=== PATIENT | male | born 1985 | race American Indian/Alaskan Native ===

== ENCOUNTER 2021-08-30 02:15 | Emergency (ER) | payer SELFPAY ==
[2021-08-30] MEDS ORDERED: hydrALAZINE 100 MG TAB PO ONE (02:46)
[2021-08-30] MEDS ORDERED: hydrALAZINE 20 MG/1 ML INJ ONE (02:56)
[2021-08-30] MEDS ORDERED: hydrALAZINE 20 MG/1 ML INJ IV ONE (02:59)
[2021-08-30] MEDS ORDERED: OXYMETAZOLINE 0.05% NASAL SPRAY NS ONE (03:00)
--- NOTE | 2021-08-30 03:20 | Emergency Department Report ---
ED General Adult HPI - General Chief complaint: Nosebleed Stated complaint: NOSEBLEED Time Seen by Provider: 08/30/21 03:14 Source: patient Mode of arrival: Ambulatory Limitations: No Limitations - History of Present Illness Initial comments: Patient is a 35-year-old male who presents with right nares bleed patient states that he was working and he blew his nose and he started bleeding. He has a past medical history of high blood pressure. Patient denies having any pain. Patient's nosebleed is severe. Patient denies being on any blood thinners. - Related Data Previous Rx's Medication Instructions Recorded Last Taken Type HYDROcodone/APAP 5-325 [[place] 1 each PO Q6HR PRN #20 tablet 05/06/14 Unknown Rx 5/325] Ibuprofen [Motrin] 800 mg PO Q8H #30 tablet 05/06/14 Unknown Rx Allergies Allergy/AdvReac Type Severity Reaction Status Date / Time No Known Allergies Allergy Verified 08/30/21 02:43 ED Review of Systems ROS: Stated complaint: NOSEBLEED Other details as noted in HPI Constitutional: denies: chills, fever Eyes: denies: eye pain, eye discharge, vision change ENT: epistaxis. denies: ear pain, throat pain Respiratory: denies: cough, shortness of breath, wheezing Cardiovascular: denies: chest pain, palpitations Endocrine: no symptoms reported Gastrointestinal: denies: abdominal pain, nausea, diarrhea Genitourinary: denies: urgency, dysuria Musculoskeletal: denies: back pain, joint swelling, arthralgia Skin: denies: rash, lesions Neurological: denies: headache, weakness, paresthesias Psychiatric: denies: anxiety, depression Hematological/Lymphatic: denies: easy bleeding, easy bruising ED Past Medical Hx - Past Medical History Hx Hypertension: Yes - Surgical History Hx Coronary Stent: No Hx Open Heart Surgery: No Hx Pacemaker: No Hx Internal Defibrillator: No Hx Cholecystectomy: No Hx Appendectomy: No Hx Breast Surgery: No - Social History Smoking Status: Never Smoker Substance Use Type: None - Medications Home Medications: Home Medications Medication Instructions Recorded Confirmed Last Taken Type HYDROcodone/APAP 5-325 [[place] 1 each PO Q6HR PRN #20 tablet 05/06/14 Unknown Rx 5/325] Ibuprofen [Motrin] 800 mg PO Q8H #30 tablet 05/06/14 Unknown Rx ED Physical Exam - General Limitations: No Limitations General appearance: alert, in no apparent distress - Head Head exam: Present: atraumatic, normocephalic - Eye Eye exam: Present: normal appearance - ENT ENT exam: Present: other (right nares bleed) - Neck Neck exam: Present: normal inspection - Respiratory Respiratory exam: Present: normal lung sounds bilaterally. Absent: respiratory distress - Cardiovascular Cardiovascular Exam: Present: regular rate, normal rhythm. Absent: systolic murmur, diastolic murmur, rubs, gallop - GI/Abdominal GI/Abdominal exam: Present: soft, normal bowel sounds - Rectal Rectal exam: Present: deferred - Extremities Exam Extremities exam: Present: normal inspection - Back Exam Back exam: Present: normal inspection - Neurological Exam Neurological exam: Present: alert, oriented X3 - Psychiatric Psychiatric exam: Present: normal affect, normal mood - Skin Skin exam: Present: warm, dry, intact, normal color. Absent: rash ED Course Vital Signs 08/30/21 08/30/21 08/30/21 02:43 02:44 03:06 Temperature 98.8 F Pulse Rate 112 H 105 H Blood Pressure 232/152 230/141 O2 Sat by Pulse 99 99 Oximetry - Procedure Description Procedures done: Anterior epistaxis management with packing ED Medical Decision Making - Medical Decision Making Chief medical diagnosis anterior epistaxis Differential medical diagnosis hypertensive urgency Hypertensive emergency I will give patient Afrin I will do nasal packing and I will give patient antihypertensive medication and I will discharge charge patient from the emergency department Critical care attestation.: If time is entered above; I have spent that time in minutes in the direct care of this critically ill patient, excluding procedure time. ED Disposition Clinical Impression: Anterior epistaxis Disposition: 01 HOME / SELF CARE / HOMELESS Is pt being admited?: No Does the pt Need Aspirin: No Condition: Stable Instructions: Nosebleed, [id number], Nosebleed, Adult
[2021-08-30] MEDS ORDERED: cloNIDine 0.2 MG TAB PO ONE (03:22)
[2021-08-30 05:45] VITALS: BP 200/100
== END 2021-08-30 05:43 | disposition home or self-care (01) ==
LOC: ED 02:15
DX: R04.0 Epistaxis (principal); I10 Essential (primary) hypertension; Z79.899 Other long term (current) drug therapy
CPT/HCPCS: 30901; 96374; 99282; J0360

== ENCOUNTER 2022-04-30 05:57 | Emergency (ER) | payer SELFPAY ==
[2022-04-30] MEDS ORDERED: cloNIDine 0.1 MG TAB PO ONE (10:09)
[2022-04-30] MEDS ORDERED: LISINOPRIL 20 MG TAB PO ONE (10:09)
--- NOTE | 2022-04-30 10:11 | Event Note ---
ED Screening Note ED Screening Note: 36-year-old male history of hypertension presents with shortness of breath cough mucus production. Blood pressure elevated in triage, patient reports he has been off blood pressure medicines for a while. Symptoms associated with intermittent chest pain, no swelling, no headache, no dizziness, no vision ch anges. General: Nontoxic appearing no acute distress Cardiac: Regular rate, normal heart sounds Respiratory: Normal lung sounds bilaterally no use of segment block layer muscles GI/-normal sounds, nontender no guarding Musculoskeletal-normal inspection full range of motion Neuro-alert oriented x4. In the setting of a significantly high volume and record number of patients presenting to the emergency department and the fact that we have a limited space to see patients we have implemented the provider in triage protocol this allows an expedited initial exam of patients that might otherwise have left without being seen or who would wait longer than usual to be seen by provider. I interviewed the patient and performed a limited physical exam. This patient is a pulled from the waiting room to triage room for an initial assessment of adrenal studies and then returned to the waiting room pending results of the studies. The ultimate final evaluation and disposition may be performed by another provider depending on room and provider availability.
--- NOTE | 2022-04-30 10:24 | XRay Report ---
CHEST 2 VIEWS INDICATION / CLINICAL INFORMATION: sob. COMPARISON: None available. FINDINGS: SUPPORT DEVICES: None. HEART / MEDIASTINUM: No significant abnormality. LUNGS / PLEURA: No significant pulmonary or pleural abnormality. No pneumothorax. ADDITIONAL FINDINGS: No significant additional findings. IMPRESSION: 1. No acute findings. Signer Name: Arnulfo Ramsay DO Signed: 04/30/2022 10:19 AM Workstation Name: [id number]
[2022-04-30 10:39] LABS: Hematocrit 37.8 % (35.5-45.6); Hemoglobin 12.6 gm/dl (11.8-15.2); Mean Corpuscular HGB Conc 34 % (32-34); Mean Corpuscular Volume 86 fl (84-94); Platelet Count 277 K/mm3 (140-440); Red Blood Count 4.37 M/mm3 (3.65-5.03); Red Cell Distribution Width 13.7 % (13.2-15.2)
[2022-04-30 11:00] LABS: Albumin 4.4 g/dL (3.9-5); Calcium 9.5 mg/dL (8.4-10.2)
[2022-04-30] MEDS ORDERED: SODIUM CHLORIDE 0.9% 1000 ML 1,000 ML IV ONE (14:27)
--- NOTE | 2022-04-30 14:39 | Emergency Department Report ---
ED General Adult HPI - General Chief complaint: Upper Respiratory Infection Stated complaint: COUGH,SOB Time Seen by Provider: 04/30/22 13:28 Source: patient Mode of arrival: Ambulatory Limitations: No Limitations - History of Present Illness Initial comments: 36-year-old male history of hypertension presents to the emergency department with cough and shortness of breath. Patient reports has been experiencing coughing with shortness of breath x1 month with intermittent chest pain. Describes mucus production with his cough, no hemoptysis. No swelling of his extremities, no activity intolerance. He denies history of asthma or COPD, no wheezing. No headache dizziness nausea vomiting abdominal pain. Patient has history of hypertension, noncompliant with medications in over a month, states he has been doing some home remedy which was helping his blood pressure initially. -: Gradual Associated Symptoms: chest pain, cough, shortness of breath. denies: confusion, diaphoresis, fever/chills, headaches, loss of appetite, malaise, nausea/vomiting, rash, seizure - Related Data Previous Rx's Medication Instructions Recorded Last Taken Type HYDROcodone/APAP 5-325 [[place] 1 each PO Q6HR PRN #20 tablet 05/06/14 Unknown Rx 5/325] Ibuprofen [Motrin] 800 mg PO Q8H #30 tablet 05/06/14 Unknown Rx cloNIDine [Catapres] 0.1 mg PO BID #60 tablet 08/30/21 Unknown Rx Lisinopril/Hydrochlorothiazide 1 each PO DAILY #30 tablet 04/30/22 Unknown Rx [Zestoretic 20-12.5 mg] carvediloL [Coreg] 25 mg PO BID #60 tablet 04/30/22 Unknown Rx Allergies Allergy/AdvReac Type Severity Reaction Status Date / Time No Known Allergies Allergy Verified 08/30/21 02:43 ED Review of Systems ROS: Stated complaint: COUGH,SOB Other details as noted in HPI ENT: denies: ear pain, throat pain Respiratory: cough Cardiovascular: denies: chest pain, palpitations, syncope Gastrointestinal: denies: abdominal pain, nausea, vomiting, constipation Genitourinary: denies: urgency, dysuria Neurological: denies: headache, weakness, numbness, paresthesias ED Past Medical Hx - Past Medical History Hx Hypertension: Yes - Surgical History Hx Coronary Stent: No Hx Open Heart Surgery: No Hx Pacemaker: No Hx Internal Defibrillator: No Hx Cholecystectomy: No Hx Appendectomy: No Hx Breast Surgery: No - Social History Smoking Status: Never Smoker Substance Use Type: None - Medications Home Medications: Home Medications Medication Instructions Recorded Confirmed Last Taken Type HYDROcodone/APAP 5-325 [[place] 1 each PO Q6HR PRN #20 tablet 05/06/14 Unknown Rx 5/325] Ibuprofen [Motrin] 800 mg PO Q8H #30 tablet 05/06/14 Unknown Rx cloNIDine [Catapres] 0.1 mg PO BID #60 tablet 08/30/21 Unknown Rx Lisinopril/Hydrochlorothiazide 1 each PO DAILY #30 tablet 04/30/22 Unknown Rx [Zestoretic 20-12.5 mg] carvediloL [Coreg] 25 mg PO BID #60 tablet 04/30/22 Unknown Rx ED Physical Exam - General Limitations: No Limitations General appearance: alert, in no apparent distress - Head Head exam: Present: atraumatic - Eye Eye exam: Present: normal appearance, PERRL - ENT ENT exam: Present: normal exam, normal orophraynx - Neck Neck exam: Present: normal inspection - Respiratory Respiratory exam: Present: normal lung sounds bilaterally. Absent: respiratory distress, wheezes - Cardiovascular Cardiovascular Exam: Present: tachycardia - GI/Abdominal GI/Abdominal exam: Present: soft. Absent: distended, tenderness - Extremities Exam Extremities exam: Present: normal inspection, full ROM. Absent: tenderness, calf tenderness - Back Exam Back exam: Present: normal inspection, full ROM - Neurological Exam Neurological exam: Present: alert, oriented X3 - Psychiatric Psychiatric exam: Present: normal affect, normal mood - Skin Skin exam: Present: warm, dry, intact, normal color ED Course Vital Signs 04/30/22 04/30/22 04/30/22 06:01 06:03 16:50 Temperature 98.0 F Pulse Rate 119 H Respiratory 16 Rate Blood Pressure 224/168 Blood Pressure 216/160 211/136 [Right] O2 Sat by Pulse 99 Oximetry - Reevaluation(s) Reevaluation #1: 04/30/22 14:[address] Garcia regarding admission recommended that I speak with my attending first before admitting patient [id number] I Have spoken with my attending Dr. jung who agrees with plan patient is to be admitted for hypertensive emergency. I paged again awaiting callback I also paged the [facility] barrel on-call. 04/30/22 15:00 Paged hospitalist, no response [id number] Page to hospitalist, spoke with Dr. Garcia, patient with a BUN/creatinine 30 and 3.0, with a systolic blood pressure in the 200s and diastolic in the 100s" patient does not meet criteria for admission, get a urine drug screen from him, treat his blood pressure, give IV fluids and discharge from the ER have him follow-up with a [facility]". ED Medical Decision Making - Lab Data Result diagrams: 04/30/22 10:11 04/30/22 10:11 - EKG Data -: EKG Interpreted by Me Rate: tachycardia - EKG Data When compared to previous EKG there are: previous EKG unavailable EKG taken at 0 6:14 AM 04/30/22 20:12 Sinus tach at 118, Probable left atrial enlargement, with LVH, anterior ST elevation probably all due to LVH WA interval 151,, QRS 90, QT 337/QTc 473. Abnormal EKG for - Radiology Data Radiology results: report reviewed, image reviewed No acute findings - Medical Decision Making 36-year-old male presenting with shortness of breath, hypertension. Symptoms are without headache dizziness vision changes, labs result concerning for hypertensive emergency with endorgan damage. Attempted to admit patient to the hospitalist services for further evaluation, as agreed upon with my attending Dr. jung. Admission orders placed in by Dr. Jung, however admission declined by Dr. Garcia, who recommended to treat patient's blood pressure in the ED IV fluids, not repeat the labs but have patient follow-up in a few weeks for lab repeat. Dr. Garcia did come down to the emergency department to explain the plan. I discussed all of this with patient and he agrees. Patient has been stable, vital signs improving, and he is voiding without difficulty. I have refilled his blood pressure medications, I have also referred him outpatient follow-up for further evaluation, and have also strictly encouraged him on blood pressure management, acute kidney injury, with understanding. Patient remained stable nontoxic-appearing, afebrile, ambulating steadily without assistance. Gone over ED findings with patient as well as plan for follow-up. Also discussed return precautions with patient, all questions and concerns addressed. Patient is stable to be discharged follow-up outpatient. Audio voice dictation device used, hence the chart might contain some dictation errors, mispronunciations, wrong spelling and wrong verbiage. Critical care attestation.: If time is entered above; I have spent that time in minutes in the direct care of this critically ill patient, excluding procedure time. ED Disposition Clinical Impression: Hypertensive emergency, Acute kidney injury, Noncompliance with medication regimen Disposition: HOME / SELF CARE / HOMELESS Is pt being admited?: No Does the pt Need Aspirin: No Condition: Stable Instructions: Hypertension (ED), Acute Kidney Injury, Adult, Managing Your Hypertension Prescriptions: carvediloL [Coreg] 25 mg PO BID #60 tablet Lisinopril/Hydrochlorothiazide [Zestoretic 20-12.5 mg] 1 each PO DAILY #30 tablet Referrals: KATHLEEN LAGUNA DO [Staff Physician] - 3-5 Days TYSON GARCIA MD [Staff Physician] - 3-5 Days Forms: Work/School Release Form(ED)
[2022-04-30 16:30] LABS: Uric Acid 7.8 mg/dL (3.5-7.6)
[2022-04-30] MEDS ORDERED: carvediloL 6.25 MG TAB PO ONE (17:03)
[2022-04-30] MEDS ORDERED: hydrALAZINE 20 MG/1 ML INJ IV ONE (17:03)
[2022-04-30 21:07] VITALS: BP 171/111
--- NOTE | 2022-05-01 13:11 | Electrocardiograph Report ---
[facility] Test Date: 2022-04-30 Test Time: 06:14:13 Pat Name: DAISY COLLIER Department: Room: Gender: M Statement Request Clerk: BELKYS : 1985 Requested By: SHERON LAMA Order Number: [id number] Reading MD: Shelly Jorge Measurements Intervals [place] Rate: 118 P: -13 CA: 151 QRS: -33 QRSD: 90 T: 100 QT: 337 QTc: 473 Interpretive Statements Sinus tachycardia Probable left atrial enlargement Left axis deviation LVH WITH SECONDARY REPOLARIZATION ABNORMALITY No previous ECG available for comparison Electronically Signed On 05-01-2022 13:11:11 EDT by Shelyl Jorge
--- NOTE | 2022-05-02 08:35 | Event Note ---
Date: 05/02/22 Case presented to me on April 30, 2022, I recommended nephrology consultation, and admission for blood pressure control, for presumed renal insufficiency, secondary to uncontrolled hypertension. I called up patient's phone #[phone], left voicemail for emergent call back. Also called up patient's , [phone], spoke to Ms. Cornejo, requested that patient's have patient call us up in the emergency room as soon as possible, so we could discuss plan of care for return to the hospital, for management for high blood pressure and renal insufficiency Shortly thereafter, the patient called back, and articulated understanding to my instructions to be present for repeat evaluation.
== END 2022-04-30 21:07 | disposition home or self-care (01) ==
LOC: ED 05:57
DX: I16.1 Hypertensive emergency (principal); I10 Essential (primary) hypertension; N17.9 Acute kidney failure, unspecified; Z91.14 Patient's other noncompliance with medication regimen
CPT/HCPCS: 36415; 71046; 80053; 82550; 83735; 84443; 84484; 84550; 85027; 93005; 96374; 99284; J0360; J7030

== ENCOUNTER 2022-05-02 09:51 | Observation (INO) | payer SELFPAY ==
--- NOTE | 2022-05-02 10:18 | Emergency Department Report ---
ED General Adult HPI - General Chief complaint: Medical Clearance Stated complaint: BLOOD PRESSURE/KIDNEY Time Seen by Provider: 05/02/22 10:16 Source: patient, RN notes reviewed, old records reviewed Mode of arrival: Stretcher Limitations: No Limitations - History of Present Illness Initial comments: The patient was evaluated in the emergency department for symptoms described in the history of present illness. He/she was evaluated in the context of the global COVID-19 pandemic, which necessitated consideration that the patient might be at risk for infection with the virus that causes COVID-19. Institutional protocols and algorithms that pertain to the evaluation of patients at risk for COVID-19 are in a state of rapid change based on informat ion released by regulatory bodies including the CDC and federal and state organizations. These policies and algorithms were followed during the patient's care in the emergency department. Please note that these policies, procedures and recommendations changed on a rapid basis. This is a 36-year-old gentleman, with a history of hypertension and tobacco abuse. He is COVID-19 vaccinated. He is also [id number]. He was seen in this department a few days ago for elevated blood pressure, and cough. Laboratory studies were obtained, and demonstrated renal insufficiency, presumably acute. Patient states that a few months ago, he had laboratory studies performed, and he believes that the laboratory studies were unremarkable. The patient came back because I called him to come back for repeat evaluation. He reports that he is been having intermittent cough, predominantly at night for the past month. He denies physical pain. He occasionally smokes cigarettes and is motivated to discontinue tobacco consumption. He denies IV drug use, and crack cocaine use. He currently denies headache, neck pain, chest pain, abdominal pain, shortness of breath, nausea, vomiting, diarrhea, urinary symptoms and testicular pain. He is very anxious about his creatinine, and is concerned that he may require dialysis. He reports that a few months ago, he was prescribed amlodipine and HCTZ, and he is intermittently compliant. Besides feeling minimally anxious about his creatinine level, he otherwise denies additional injuries and complaints Associated Symptoms: denies other symptoms, cough - Related Data Previous Rx's Medication Instructions Recorded Last Taken Type HYDROcodone/APAP 5-325 [[place] 1 each PO Q6HR PRN #20 tablet 05/06/14 Unknown Rx 5/325] Ibuprofen [Motrin] 800 mg PO Q8H #30 tablet 05/06/14 Unknown Rx cloNIDine [Catapres] 0.1 mg PO BID #60 tablet 08/30/21 Unknown Rx Lisinopril/Hydrochlorothiazide 1 each PO DAILY #30 tablet 04/30/22 Unknown Rx [Zestoretic 20-12.5 mg] carvediloL [Coreg] 25 mg PO BID #60 tablet 04/30/22 Unknown Rx Allergies Allergy/AdvReac Type Severity Reaction Status Date / Time No Known Allergies Allergy Verified 05/02/22 10:21 ED Review of Systems ROS: Stated complaint: BLOOD PRESSURE/KIDNEY Other details as noted in HPI Comment: All other systems reviewed and negative Respiratory: cough Psychiatric: anxiety ED Past Medical Hx - Past Medical History Hx Hypertension: Yes - Surgical History Hx Coronary Stent: No Hx Open Heart Surgery: No Hx Pacemaker: No Hx Internal Defibrillator: No Hx Cholecystectomy: No Hx Appendectomy: No Hx Breast Surgery: No - Social History Smoking Status: Never Smoker Substance Use Type: None - Medications Home Medications: Home Medications Medication Instructions Recorded Confirmed Last Taken Type HYDROcodone/APAP 5-325 [[place] 1 each PO Q6HR PRN #20 tablet 05/06/14 Unknown Rx 5/325] Ibuprofen [Motrin] 800 mg PO Q8H #30 tablet 05/06/14 Unknown Rx cloNIDine [Catapres] 0.1 mg PO BID #60 tablet 08/30/21 Unknown Rx Lisinopril/Hydrochlorothiazide 1 each PO DAILY #30 tablet 04/30/22 Unknown Rx [Zestoretic 20-12.5 mg] carvediloL [Coreg] 25 mg PO BID #60 tablet 04/30/22 Unknown Rx ED Physical Exam - General Limitations: No Limitations General appearance: alert, anxious - Head Head exam: Present: atraumatic, normocephalic - Eye Eye exam: Present: normal appearance, EOMI, other (Visual acuity intact to finger counting, color perception, reading at a close distance). Absent: nystagmus - ENT ENT exam: Present: normal exam, normal orophraynx, mucous membranes moist, normal external ear exam - Neck Neck exam: Present: normal inspection, full ROM. Absent: tenderness, meningismus - Respiratory Respiratory exam: Present: normal lung sounds bilaterally. Absent: respiratory distress, wheezes, rales, rhonchi, stridor, decreased breath sounds - Cardiovascular Cardiovascular Exam: Present: regular rate, normal rhythm, normal heart sounds. Absent: bradycardia, tachycardia, irregular rhythm, systolic murmur, diastolic murmur, rubs, gallop - GI/Abdominal GI/Abdominal exam: Present: soft. Absent: distended, tenderness, guarding, rebound, rigid, pulsatile mass - Rectal Rectal exam: Present: deferred - Extremities Exam Extremities exam: Present: normal inspection, full ROM, other (2+ pulses noted in the bilateral upper and lower extremities. There is no palpable cord. negative Homans sign. Muscular compartments are soft. The pelvis is stable.). Absent: pedal edema, calf tenderness - Back Exam Back exam: Present: normal inspection, full ROM. Absent: CVA tenderness (R), CVA tenderness (L), paraspinal tenderness, vertebral tenderness - Neurological Exam Neurological exam: Present: alert, oriented X3, normal gait, other (No facial droop. Tongue midline. Extraocular movements intact bilaterally. Facial sensation intact to light touch in V1, V2, V3 distribution bilaterally. 5 and a 5 strength in 4 extremities. Sensation intact to light touch in 4 extremities.). Absent: motor sensory deficit - Psychiatric Psychiatric exam: Present: anxious - Skin Skin exam: Present: warm, dry, intact, normal color. Absent: rash ED Course Vital Signs 05/02/22 10:18 Temperature 98.5 F Pulse Rate 75 Respiratory 18 Rate Blood Pressure 175/110 [Left] O2 Sat by Pulse 99 Oximetry ED Medical Decision Making - Lab Data Result diagrams: 05/02/22 10:46 Vital Signs 05/02/22 10:18 Temperature 98.5 F Pulse Rate 75 Respiratory 18 Rate Blood Pressure 175/110 [Left] O2 Sat by Pulse 99 Oximetry Lab Results 05/02/22 Range/Units 10:46 Sodium 136 L (137-145) mmol/L Potassium 4.2 (3.6-5.0) mmol/L Chloride 101.5 (98-107) mmol/L Carbon Dioxide 25 (22-30) mmol/L Anion Gap 14 mmol/L BUN 28 H (9-20) mg/dL Creatinine 3.2 H (0.8-1.3) mg/dL Estimated GFR 27 ml/min BUN/Creatinine Ratio 9 % Glucose 109 H (75-100) mg/dL Calcium 9.0 (8.4-10.2) mg/dL Magnesium 2.00 (1.7-2.3) mg/dL Total Creatine Kinase 113 (55-170) units/L - EKG Data -: EKG Interpreted by Me EKG shows normal: sinus rhythm - EKG Data 05/02/22 11:53 The EKG is interpreted at 10: 21 Sinus rhythm, rate 86 bpm. Left axis deviation, left anterior fascicular block, atrial enlargement, poor R wave progression, QTC 4 6 9 ms. Nonspecific T wave abnormalities. Abnormal EKG. Not a STEMI - Radiology Data Radiology results: report reviewed, image reviewed Prior x-rays are reviewed and appreciated - Medical Decision Making Differential diagnosis, including not limited to: Hypertensive urgency, hypertensive nephropathy, noncompliance, renal insufficiency Assessment and plan: 36-year-old gentleman, who is currently afebrile, with reassuring vital signs with exception of hypertension which appears to be improved when compared to prior, who has a GCS of 15, who is not encephalopathic, with probable hypertensive nephropathy. Renal function slightl y worse than when compared to prior. Recommend admission for medical optimization, for presumed endorgan dysfunction. Patient is agreeable to admission and hospitalization. Discussed the patient's history, physical, laboratory studies, and clinical impression with nephrology on-call, Dr. Alfredo Levy, As well as hospital physician, Dr. Moises Carias Nephrology will follow in consultation. Hospital medicine to admit to [facility] Critical care attestation.: If time is entered above; I have spent that time in minutes in the direct care of this critically ill patient, excluding procedure time. ED Disposition Clinical Impression: Hypertensive urgency, malignant, Renal insufficiency Disposition: ADMITTED INPATIENT Is pt being admited?: Yes Does the pt Need Aspirin: No Condition: Good Referrals: PRIMARY CARE, [Primary Care Provider] - 3-5 Days
[2022-05-02] MEDS ORDERED: SODIUM CHLORIDE 0.9% 500 ML 500 ML IV ONE (11:53)
[2022-05-02] MEDS ORDERED: amLODIPine 5 MG TAB PO ONE (11:53)
[2022-05-02] MEDS ORDERED: ACETAMINOPHEN 325 MG TAB PO PRN ×2 (11:57→12:06)
[2022-05-02] MEDS ORDERED: ONDANSETRON 4 MG/2 ML INJ IV PRN (11:57)
[2022-05-02] MEDS ORDERED: NALOXONE 0.4 MG/1 ML INJ IV PRN (12:06)
[2022-05-02] MEDS ORDERED: ALBUTEROL 2.5 MG/3 ML NEBU IH PRN (12:06)
[2022-05-02] MEDS ORDERED: oxyCODONE /ACETAMINOPHEN 5-325MG TAB PO PRN (12:06)
[2022-05-02] MEDS ORDERED: hydrALAZINE 20 MG/1 ML INJ IV PRN (12:08)
--- NOTE | 2022-05-02 12:10 | History and Physical Report ---
History of Present Illness Date of examination: 05/02/22 Date of admission: 05/02/22 Chief complaint: Hypertensive urgency with endorgan dysfunction History of present illness: Patient is a 36-year-old male with history of hypertension and tobacco use. He has had a prolonged history of hypertension dating back to 2020. Unfortunately he self discontinued his medications. He presented to the hospital due to cough that has been ongoing for about a month with intermittent shortness of breath. Following evaluation in the ED he was discharged to follow-up with field associate outpatient as he was noted to have a creatinine of 3.0. However his blood pressure was significantly elevated still in the 170s over 111 on discharge as a result he was called back to return to the hospital for further evaluation. On returning today he denies any chest pain nausea vomiting or diarrhea he still has a mild cough but states that his shortness of breath is improved however his blood pressure was still significantly elevated and his creatinine was noted to be 3.2. He has been recommended for admission and observation to be evaluated by field associate as he has been noncompliant back in 2020 his blood pressure systolic was in the 250s unfortunately he did not follow-up with consistently with any physician. He tells me that he is try to control his blood pressure using natural means. He also reports that he has been taking [id number] sex enhancement drugs from the [employer]. Past History Past Medical History: hypertension, hyperlipidemia, other (No acute kidney injury) Past Surgical History: No surgical history Social history: single, smoking (Since he quit a few years ago), full code. denies: alcohol abuse Family history: no significant family history Medications and Allergies Allergies Allergy/AdvReac Type Severity Reaction Status Date / Time No Known Allergies Allergy Verified 05/02/22 10:21 Home Medications Medication Instructions Recorded Confirmed Last Taken Type HYDROcodone/APAP 5-325 [[place] 1 each PO Q6HR PRN #20 tablet 05/06/14 Unknown Rx 5/325] Ibuprofen [Motrin] 800 mg PO Q8H #30 tablet 05/06/14 Unknown Rx cloNIDine [Catapres] 0.1 mg PO BID #60 tablet 08/30/21 Unknown Rx Lisinopril/Hydrochlorothiazide 1 each PO DAILY #30 tablet 04/30/22 Unknown Rx [Zestoretic 20-12.5 mg] carvediloL [Coreg] 25 mg PO BID #60 tablet 04/30/22 Unknown Rx Active Meds: Active Medications Acetaminophen (Acetaminophen 325 Mg Tab) 650 mg PO Q4H PRN PRN Reason: Pain MILD(1-3)/Fever >100.5/BENSON Albuterol (Albuterol 2.5 Mg/3 Ml Nebu) 2.5 mg IH Q3HRT PRN PRN Reason: Shortness Of Breath Amlodipine Besylate (Amlodipine 10 Mg Tab) 10 mg PO QDAY [facility] Carvedilol (Carvedilol 25 Mg Tab) 25 mg PO BID [facility] Famotidine (Famotidine 20 Mg Tab) 20 mg PO BID [facility] Hydralazine HCl (Hydralazine 20 Mg/1 Ml Inj) 10 mg IV Q4HR PRN PRN Reason: Hypertension Hydralazine HCl (Hydralazine 25 Mg Tab) 50 mg PO Q8HR [facility] Sodium Chloride (Nacl 0.9% 500 Ml) 500 mls @ 999 mls/hr IV ONCE ONE Stop: 05/02/22 12:23 Sodium Chloride (Nacl 0.9% 1000 Ml) 1,000 mls @ 125 mls/hr IV DIRECT DEEPAK Naloxone HCl (Naloxone 0.4 Mg/1 Ml Inj) 0.1 mg IV Q2MIN PRN PRN Reason: Res Rate </= 8 or 02 SAT < 92% Ondansetron HCl (Ondansetron 4 Mg/2 Ml Inj) 4 mg IV Q8H PRN PRN Reason: Nausea And Vomiting Oxycodone/Acetaminophen (Oxycodone /Acetaminophen 5-325mg Tab) 1 tab PO Q6H PRN PRN Reason: Pain, Moderate (4-6) Sodium Chloride (Sodium Chloride 0.9% 10 Ml Flush Syringe) 10 ml IV BID DEEPAK Sodium Chloride (Sodium Chloride 0.9% 10 Ml Flush Syringe) 10 ml IV PRN PRN PRN Reason: LINE FLUSH Review of Systems All systems: negative Constitutional: no weight loss, no weight gain, no fever, no chills, no sweats, no fatigue, no weakness, no malaise, no lethargy Cardiovascular: shortness of breath, no chest pain, no orthopnea, no pal pitations, no rapid/irregular heart beat, no edema, no syncope, no lightheadedness Respiratory: cough, shortness of breath, dyspnea on exertion, no cough with sputum, no excessive sputum, no hemoptysis, no congestion, no wheezing, no pain, no pain on inspiration Exam - Physical Exam Narrative exam: VITAL SIGNS: Reviewed. GENERAL: The patient appears normally developed, Vital signs as documented. HEAD: No signs of head trauma. EYES: Pupils are equal. Extraocular motions intact. EARS: Hearing grossly intact. MOUTH: Oropharynx is normal. NECK: No adenopathy, no JVD. CHEST: Chest with clear breath sounds bilaterally. No wheezes, rales, or rhonchi. CARDIAC: Regular rate and rhythm. S1 and S2, without murmurs, gallops, or rubs. VASCULAR: No Edema. Peripheral pulses normal and equal in all extremities. ABDOMEN: Soft, non tender and non distended. No rebound or guarding, and no masses palpated. Bowel Sounds normal. MUSCULOSKELETAL: Good range of motion of all major joints. Extremities without clubbing, cyanosis or edema. NEUROLOGIC EXAM: Alert and oriented x 3 No focal sensory or strength deficits. Speech normal. Follows commands. PSYCHIATRIC: Mood normal. SKIN: detail exam as documented in skin assessment - Constitutional Vitals: Temp Pulse Resp BP Pulse Ox 98.5 F 75 18 175/110 99 05/02/22 10:18 05/02/22 10:18 05/02/22 10:18 05/02/22 10:18 05/02/22 10:18 Results - Labs CBC & Chem 7: 05/02/22 10:46 Labs: Laboratory Last Values Sodium 136 mmol/L (137-145) L 05/02/22 10:46 Potassium 4.2 mmol/L (3.6-5.0) 05/02/22 10:46 Chloride 101.5 mmol/L (98-107) 05/02/22 10:46 Carbon Dioxide 25 mmol/L (22-30) 05/02/22 10:46 Anion Gap 14 mmol/L 05/02/22 10:46 BUN 28 mg/dL (9-20) H 05/02/22 10:46 Creatinine 3.2 mg/dL (0.8-1.3) H 05/02/22 10:46 Estimated GFR 27 ml/min 05/02/22 10:46 BUN/Creatinine Ratio 9 % 05/02/22 10:46 Glucose 109 mg/dL (75-100) H 05/02/22 10:46 Calcium 9.0 mg/dL (8.4-10.2) 05/02/22 10:46 Magnesium 2.00 mg/dL (1.7-2.3) 05/02/22 10:46 Total Creatine Kinase 113 units/L (55-170) 05/02/22 10:46 Assessment and Plan Assessment and plan: Patient is a 36-year-old male with history of hypertension and tobacco use. He has had a prolonged history of hypertension dating back to 2020. Unfortunately he self discontinued his medications. He presented to the hospital due to cough that has been ongoing for about a month with intermittent shortness of breath. Following evaluation in the ED he was discharged to follow-up with field associate outpatient as he was noted to have a creatinine of 3.0. However his blood pressure was significantly elevated still in the 170s over 111 on discharge as a result he was called back to return to the hospital for further evaluation. On returning today he denies any chest pain nausea vomiting or diarrhea he still has a mild cough but states that his shortness of breath is improved however his blood pressure was still significantly elevated and his creatinine was noted to be 3.2. He has been recommended for admission and observation to be evaluated by field associate as he has been noncompliant back in 2020 his blood pressure systolic was in the 250s unfortunately he did not follow-up with consistently with any physician. He tells me that he is try to control his blood pressure using natural means. He also reports that he has been taking [id number] sex enhancement drugs from the [facility]. Hypertensive urgency with endorgan dysfunction Acute kidney injury likely vasomotor nephropathy versus hypertensive mediated renal disease Noncompliance History of tobacco use disorder Shortness of breath of a fully vaccinated individual Plan Admit to observation Initiate BP control with Norvasc, Hydralazine and BB, will titrate down if needed Hold off all JESSIKA/ARB/Diurectics due to renal dysfunction Counseling provided to the patient on compliance with medical management and also 15 minutes of counseling on tobacco cessation risk and benefits discussed in detail Rule out COVID 19 [employer] S[employer]er consulted Cardiology consult Echocardiogram to ensure no severe damage from longstanding history of hypertension DVT and GI prophylaxis Critical care management 90 minutes on admission including care coordination and management. Advance Directives: Yes (Full code discussion for 30 minutes.) Plan of care discussed with patient/family: Yes
[2022-05-02] MEDS ORDERED: SODIUM CHLORIDE 0.9% 1000 ML 1,000 ML IV SCH (12:15)
[2022-05-02] MEDS ORDERED: hydrALAZINE 25 MG TAB PO SCH (14:00)
[2022-05-02 14:55] LABS: Amphetamine Screen,Urine Negative; Benzodiazepines Screen,Urine Negative; Cannabinoid Screen,Urine Negative; Cocaine Screen,Urine Negative; Methadone Screen,Urine Negative; Opiate Screen,Urine Negative
[2022-05-02] MEDS: hydrALAZINE 25 MG TAB PO SCH ×2 (14:56→21:27)
[2022-05-02 15:02] LABS: Creatinine,Urine 43.3 mg/dL (0.1-20.0)
[2022-05-02 15:10] LABS: Osmolality,Urine 247 Mosm/kg
--- NOTE | 2022-05-02 15:43 | Ultrasound Report ---
ULTRASOUND RENAL INDICATION / CLINICAL INFORMATION: desirae. COMPARISON: None available. FINDINGS: RIGHT KIDNEY: Size (in cm): 10.5 - Echogenicity: Normal. - Parenchymal Thickness: Normal. - Hydronephrosis: None. - Cyst or mass: No significant abnormality. - Stones: None seen. LEFT KIDNEY: Size (in cm): 10.4 - Echogenicity: Normal. - Parenchymal Thickness: Normal. - Hydronephrosis: None. - Cyst or mass: No significant abnormality. - Stones: None seen. URINARY BLADDER: No significant abnormality. FREE FLUID: None. ADDITIONAL FINDINGS: None. IMPRESSION: 1. No significant abnormality. Signer Name: Sanya Soto MD Signed: 05/02/2022 3:39 PM Workstation Name: [email or web address]
[2022-05-02] MEDS: FAMOTIDINE 20 MG TAB PO SCH (21:27)
[2022-05-02] MEDS: carvediloL 25 MG TAB PO SCH (21:27)
[2022-05-03] MEDS: hydrALAZINE 25 MG TAB PO SCH (05:46)
--- NOTE | 2022-05-03 08:47 | Consultation ---
History of Present Illness - Reason for Consult Consult date: 05/03/22 acute renal failure, chronic renal failure Past History Past Medical History: hypertension, hyperlipidemia, other (No acute kidney injury) Past Surgical History: No surgical history Social history: single, smoking (Since he quit a few years ago), full code. d enies: alcohol abuse Family history: no significant family history Medications and Allergies Allergies Allergy/AdvReac Type Severity Reaction Status Date / Time No Known Allergies Allergy Verified 05/02/22 10:21 Home Medications Medication Instructions Recorded Confirmed Last Taken Type HYDROcodone/APAP 5-325 [[place] 1 each PO Q6HR PRN #20 tablet 05/06/14 05/03/22 05/03/22 Rx 5/325] Ibuprofen [Motrin] 800 mg PO Q8H #30 tablet 05/06/14 05/03/22 05/03/22 Rx cloNIDine [Catapres] 0.1 mg PO BID #60 tablet 08/30/21 05/03/22 05/03/22 Rx Lisinopril/Hydrochlorothiazide 1 each PO DAILY #30 tablet 04/30/22 05/03/22 05/03/22 Rx [Zestoretic 20-12.5 mg] carvediloL [Coreg] 25 mg PO BID #60 tablet 04/30/22 05/03/22 05/03/22 Rx Active Meds: Active Medications Acetaminophen (Acetaminophen 325 Mg Tab) 650 mg PO Q4H PRN PRN Reason: Pain MILD(1-3)/Fever >100.5/BESNON Albuterol (Albuterol 2.5 Mg/3 Ml Nebu) 2.5 mg IH Q3HRT PRN PRN Reason: Shortness Of Breath Amlodipine Besylate (Amlodipine 10 Mg Tab) 10 mg PO QDAY [facility] Carvedilol (Carvedilol 25 Mg Tab) 25 mg PO BID [facility] Last Admin: 05/02/22 21:27 Dose: 25 mg Famotidine (Famotidine 20 Mg Tab) 20 mg PO BID [facility] Last Admin: 05/02/22 21:27 Dose: 20 mg Hydralazine HCl (Hydralazine 20 Mg/1 Ml Inj) 10 mg IV Q4HR PRN PRN Reason: Hypertension Hydralazine HCl (Hydralazine 25 Mg Tab) 100 mg PO Q8HR [facility] Last Admin: 05/03/22 05:46 Dose: 100 mg Sodium Chloride (Nacl 0.9% 1000 Ml) 1,000 mls @ 125 mls/hr IV DIRECT DEEPAK Last Infusion: 05/03/22 05:44 Dose: Infused Naloxone HCl (Naloxone 0.4 Mg/1 Ml Inj) 0.1 mg IV Q2MIN PRN PRN Reason: Res Rate </= 8 or 02 SAT < 92% Ondansetron HCl (Ondansetron 4 Mg/2 Ml Inj) 4 mg IV Q8H PRN PRN Reason: Nausea And Vomiting Oxycodone/Acetaminophen (Oxycodone /Acetaminophen 5-325mg Tab) 1 tab PO Q6H PRN PRN Reason: Pain, Moderate (4-6) Sodium Chloride (Sodium Chloride 0.9% 10 Ml Flush Syringe) 10 ml IV BID [facility] Last Admin: 05/02/22 21:28 Dose: 10 ml Sodium Chloride (Sodium Chloride 0.9% 10 Ml Flush Syringe) 10 ml IV PRN PRN PRN Reason: LINE FLUSH Exam - Vital Signs Vital signs: Vital Signs Temp Pulse Resp BP Pulse Ox 98.5 F 75 18 175/110 99 05/02/22 10:18 05/02/22 10:18 05/02/22 10:18 05/02/22 10:18 05/02/22 10:18 Results - Lab Results 05/02/22 10:46 Most recent lab results Calcium 9.0 mg/dL (8.4-10.2) 05/02/22 10:46 Magnesium 2.00 mg/dL (1.7-2.3) 05/02/22 10:46 Urine Creatinine 43.3 mg/dL (0.1-20.0) H 05/02/22 14:35 Urine Sodium 71 mmol/L 05/02/22 14:35
[2022-05-03 08:50] LABS: Basophils % (Auto) 0.5 % (0.0-1.8); Eosinophils # (Auto) 0.1 K/mm3 (0.0-0.4); Hematocrit 38.7 % (35.5-45.6); Hemoglobin 12.9 gm/dl (11.8-15.2); Lymphocytes # (Auto) 1.1 K/mm3 (1.2-5.4); Lymphocytes % (Auto) 11.5 % (13.4-35.0); Mean Corpuscular HGB Conc 33 % (32-34); Mean Corpuscular Volume 87 fl (84-94); Monocytes # (Auto) 0.7 K/mm3 (0.0-0.8); Platelet Count 289 K/mm3 (140-440); Red Blood Count 4.48 M/mm3 (3.65-5.03); Red Cell Distribution Width 14.4 % (13.2-15.2)
[2022-05-03 09:15] LABS: Albumin 3.3 g/dL (3.9-5); Calcium 8.7 mg/dL (8.4-10.2)
[2022-05-03] MEDS: FAMOTIDINE 20 MG TAB PO SCH (09:34)
[2022-05-03] MEDS: carvediloL 25 MG TAB PO SCH (09:34)
[2022-05-03] MEDS ORDERED: amLODIPine 10 MG TAB PO SCH (10:00)
--- NOTE | 2022-05-03 10:54 | Discharge Summary ---
Providers - Providers Date of Admission: 05/02/22 11:57 Attending physician: YUMIKO PECK MD 05/02/22 11:44 Consult to Physician [CONS] Urgent Comment: Consulting Provider: TATE HASSAN Physician Instructions: Reason For Exam: desirae Primary care physician: M[employer] ROOM TE[employer]ER Hospitalization Reason for admission: Shortness of breath with hypertensive urgency Condition: Good Hospital course: Patient is a 36-year-old male with history of hypertension and tobacco use. He has had a prolonged history of hypertension dating back to 2020. Unfortunately he self discontinued his medications. He presented to the hospital due to cough that has been ongoing for about a month with intermittent shortness of breath. Following evaluation in the ED he was discharged to follow-up with .net developer outpatient as he was noted to have a creatinine of 3.0. However his blood pressure was significantly elevated still in the 170s over 111 on discharge as a result he was called back to return to the hospital for further evaluation. On returning today he denies any chest pain nausea vomiting or diarrhea he still has a mild cough but states that his shortness of breath is improved however his blood pressure was still significantly elevated and his creatinine was noted to be 3.2. He has been recommended for admission and observation to be evaluated by .net developer as he has been noncompliant back in 2020 his blood pressure systolic was in the 250s unfortunately he did not follow-up with consistently with any physician. He tells me that he is try to control his blood pressure using natural means. He also reports that he has been taking [id number] sex enhancement drugs from the [employer]. 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 Echocardiogram was obtained which showed cardiomyopathy possibly nonischemic and secondary to hypertensive condition. Extensive counseling was provided to the patient including 50 minutes of smoking cessation. Patient was very anxious during stay consistently asking question about ending up on dialysis I did tell him that if he controls his blood pressure we can be able to determine his progression in the next few months. He needs proper follow-up with the doctors he verbalized understanding. I did discuss with the food assembler commissary kitchen who states that they will see the patient in the office and prescriptions were written for the patient. He is clinically stable for discharge at this time I also provided patient information to follow-up with her psychiatrist outpatient. Disposition: 01 HOME / SELF CARE / HOMELESS Final Discharge Diagnosis (Prints w/discharge instructions): Hypertensive urgency with endorgan dysfunction. CKD 3 secondary to hypertensive mediated renal disease. Cardiomyopathy. Noncompliance. History of tobacco use disorder. Acute dyspnea now improved. 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 GENERAL: The patient appears normally developed, Vital signs as documented. HEAD: No signs of head trauma. EYES: Pupils are equal. Extraocular motions intact. EARS: Hearing grossly intact. MOUTH: Oropharynx is normal. NECK: No adenopathy, no JVD. CHEST: Chest with clear breath sounds bilaterally. No wheezes, rales, or rhonchi. CARDIAC: Regular rate and rhythm. S1 and S2, without murmurs, gallops, or rubs. VASCULAR: No Edema. Peripheral pulses normal and equal in all extremities. ABDOMEN: Soft, non tender and non distended. No rebound or guarding, and no masses palpated. Bowel Sounds normal. MUSCULOSKELETAL: Good range of motion of all major joints. Extremities without clubbing, cyanosis or edema. NEUROLOGIC EXAM: Alert and oriented x 3 No focal sensory or strength deficits. Speech normal. Follows commands. PSYCHIATRIC: Mood anxious but improved following counseling SKIN: detail exam as documented in skin assessment - Constitutional Vitals: Temp Pulse Resp BP Pulse Ox 98.3 F 88 20 143/77 99 05/03/22 05:19 05/03/22 05:19 05/03/22 05:19 05/03/22 05:05/03/22 10:24 Plan Activity: advance as tolerated, fall precautions Diet: renal Special Instructions: record daily weights, record daily BP diary, smoking cessation Follow up with: KERRY JARVIS MD [Staff Physician] - 7 Days DIANNA ESPINOSA MD [Staff Physician] - 7 Days [facility] [place] [Referring] - 7 Days Prescriptions: amLODIPine 10 mg PO QDAY #30 tablet hydrALAZINE [Apresoline TAB] 100 mg PO TID #90 tab buPROPion HCL [Bupropion Xl] 150 mg PO QAM #30 tab carvediloL [Coreg] 25 mg PO BID #60 tablet hydrOXYzine PAMOATE [Vistaril] 25 mg PO Q6HR PRN #30 capsule PRN Reason: Anxiety
[2022-05-03 12:36] VITALS: BP 129/87
--- NOTE | 2022-05-04 13:23 | Electrocardiograph Report ---
[facility] Test Date: 2022-05-02 Test Time: 10:21:34 Pat Name: DAISY COLLIER Department: Room: A367 1 Gender: M Train Controller: DONNA : 1985 Requested By: GRISELDA JOHNSON Order Number: [id number] Reading MD: Shelly Jorge Measurements Intervals [place] Rate: 86 P: 53 ME: 160 QRS: -35 QRSD: 87 T: 107 QT: 384 QTc: 459 Interpretive Statements Sinus rhythm Probable left atrial enlargement Left axis deviation LVH WITH SECONDARY REPOLARIZATION ABNORMALITY Compared to ECG 04/30/2022 06:14:13 No significant change Electronically Signed On 05-04-2022 13:23:34 EDT by Shelly Jorge
== END 2022-05-03 13:20 | disposition home or self-care (01) ==
LOC: ED 09:51 → 3A 11:57
PROVIDERS: ADMIT Internal Medicine; ATTEND Internal Medicine
DX: I16.0 Hypertensive urgency (principal); Z20.822 Contact with and (suspected) exposure to COVID-19; N17.9 Acute kidney failure, unspecified; I12.9 Hypertensive chronic kidney disease with stage 1 through stage 4 chronic kidney disease, or unspecified chronic kidney disease; N18.30 Chronic kidney disease, stage 3 unspecified; N28.9 Disorder of kidney and ureter, unspecified; I42.9 Cardiomyopathy, unspecified; F41.9 Anxiety disorder, unspecified; E78.5 Hyperlipidemia, unspecified; Z91.19 Patient's noncompliance with other medical treatment and regimen; Z87.891 Personal history of nicotine dependence
CPT/HCPCS: 36415; 76770; 80048; 80053; 80307; 82550; 82570; 83036; 83735; 83935; 83970; 84300; 85025; 93005; 96360; 96361; 99284; C8929; G0378; J7030; J7040; U0003; 93306